=== PATIENT | male | born 1985 | race Hispanic/Latino ===

== ENCOUNTER 2023-01-30 12:53 | Inpatient (IN) | payer SELFPAY ==
[2023-01-30] MEDS ORDERED: Iopamidol-370 76% 500 ML MDV (1 ML CHARGE) ONE (13:01)
[2023-01-30] MEDS ORDERED: Midazolam HCl 2 mg/2 ml Vial ONE ×2 (13:04→13:16)
[2023-01-30 13:18] LABS: Hemoglobin 17.9 g/dL (12.0-18.0); Mean Corpuscular HGB CONC 34.7 g/dL (32.0-36.0); Mean Corpuscular Hemoglobin 31.4 pg (27.0-31.0); Mean Corpuscular Volume 90.7 fl (78.0-98.0); Mean Platelet Volume 8.2 fL (7.4-10.4); Platelet Count 309 10x3/uL (130-400); RBC Distribution Width 12.1 % (11.5-14.5); White Blood Cell (WBC) Count 22.3 10x3/uL (4.8-10.8)
[2023-01-30 13:27] LABS: Bacteria/HPF None Seen HPF (None Seen); Bilirubin Negative (Negative); Blood, Urine 1+ (Negative); Clarity Clear (Clear); Glucose, Urine (Dipstick) Normal (Negative); Ketone, Urine 10 mg/dL (Negative); Leukocyte Negative Leu/uL (Negative); Nitrite Negative (Negative); Protein, Urine (Dipstick) 10 mg/dL (Neg-Trace); Specific Gravity, Urine 1.009 (1.002-1.036); Squamous Epithelial 0-3 HPF (0-3); Urobilinogen Normal mg/dL (Less than 2); WBC/HPF 0-3 HPF (0-3); pH, Urine 6.5 (5.0-9.0)
[2023-01-30] MEDS ORDERED: Fentanyl CADD 100 ML IV SCH (13:30)
[2023-01-30 13:33] LABS: Amphetamine Not Detected (NotDetected); Barbiturates Screen Not Detected (NotDetected); Benzodiazepine Screen Not Detected (NotDetected); Cocaine Metabolite Screen Not Detected (NotDetected); Methadone Not Detected (NotDetected); Methamphetamine Not Detected (NotDetected); Opiate Screen Not Detected (NotDetected); Oxycodone Screen Not Detected (NotDetected); Phencyclidine (PCP) Not Detected (NotDetected); THC/Cannabinoid Screen Detected (NotDetected); Tricyclic Screen Not Detected (NotDetected)
[2023-01-30 13:35] LABS: Band 4 % (5-11); Lymphocytes 9 % (21-51); MDiff Complete? YES; Monocytes 4 % (0-10); Neutrophil 82 % (42-75); Platelet Morphology Comment Appears Adequate; RBC Morphology Normal; Reactive Lymphocytes 1 % (0-10)
[2023-01-30 13:52] LABS: Acetaminophen Less than 10.0 mcg/mL (10.0-30.0); Alcohol Less than 10 mg/dL (Less than 10); Salicylate Less than 8.0 mg/dL (15.0-30.0)
[2023-01-30 14:05] LABS: Base Excess (BEa) -2.2 mEq/L (-2.0 to +3.0); Calcium, Ionized (arterial) 1.07 mmol/L (1.12-1.30); Carboxyhemoglobin (COHb) 1.3 gm% (0.0-3.0); Hemoglobin (Hb) 17.2 g/dL (12.0-18.0); O2 Tension (PaO2), arterial 85.3 mmHg (> 60.0); Potassium - ABG Lab 3.31 mmol/L (3.70-5.30); pH, Arterial 7.37 (7.35-7.45)
[2023-01-30 14:06] LABS: Puncture Site Right Radial
[2023-01-30] MEDS ORDERED: Insulin Regular 300 UNITS/3 ML VIAL SC PRN (14:12)
[2023-01-30] MEDS ORDERED: TETANUS, DIPHTHERIA TOX,ADULT (TDVAX) 0.5 ML VIAL IM ONE (14:12)
[2023-01-30] MEDS ORDERED: Ondansetron PF 4 MG/2 ML Vial IVP PRN (14:12)
[2023-01-30] MEDS ORDERED: Dextrose 5% in Water 1,000 ML IV PRN (14:12)
[2023-01-30] MEDS ORDERED: Ipratropium/Albuterol 3 ML NEB NEB PRN (14:12)
[2023-01-30] MEDS ORDERED: Dextrose 50% Abboject 50 ML SYRINGE SLOW IVP PRN (14:12)
[2023-01-30] MEDS ORDERED: Calcium Chloride 13.6 MEQ in Sodium Chloride 0.9% 100 ML IVPB SCH (14:15)
[2023-01-30 14:20] LABS: ALT (SGPT) 52 U/L (8-55); AST (SGOT) 41 U/L (5-34); Albumin 4.6 g/dL (3.4-4.8); Alcohol Less than 10 mg/dL (Less than 10); Alkaline Phosphatase 112 U/L (40-110); Anion Gap 20 mmol/L (10-20); BUN (Urea Nitrogen) 10 mg/dL (8.4-25.7); Bilirubin, Total 1.4 mg/dL (0.2-1.2); Calcium 8.8 mg/dL (7.8-10.44); Carbon Dioxide 16 mmol/L (23-31); Chloride 106 mmol/L (98-107); Globulin 3.7 g/dL (2.4-3.5); Glucose 182 mg/dL (83-110); Lipase 13 U/L (8-78); Potassium 3.6 mmol/L (3.5-5.1); Protein, Total 8.3 g/dL (5.8-8.1); Sodium 138 mmol/L (136-145)
[2023-01-30] MEDS ORDERED: Sodium Chloride 3% 500 ML IVPB SCH ×2 (14:30→20:00)
[2023-01-30 14:36] LABS: INR-International Normal Ratio 0.9; Prothrombin Time 12.8 sec (12.0-14.7)
[2023-01-30 14:37] LABS: PTT 26.6 sec (22.9-36.1)
[2023-01-30 14:48] LABS: Troponin I 0.011 ng/mL (< 0.028)
[2023-01-30] MEDS ORDERED: Labetalol HCl 100 MG/20 ML VIAL SLOW IVP PRN (14:58)
[2023-01-30] MEDS ORDERED: hydrALAZINE 20 MG/ML VIAL SLOW IVP PRN (14:58)
[2023-01-30 15:27] LABS: Magnesium 1.7 mg/dL (1.6-2.6)
[2023-01-30 15:56] LABS: Actual Bicarbonate (HCO3a) 18.7 mEq/L (22-28); Base Excess (BEa) -3.4 mEq/L (-2.0 to +3.0); CO2 Tension 27.1 mmHg (35.0-45.0); Calcium, Ionized (arterial) 1.18 mmol/L (1.12-1.30); Carboxyhemoglobin (COHb) 0.8 gm% (0.0-3.0); Hemoglobin (Hb) 16.6 g/dL (14.0-18.0); O2 Tension (PaO2), arterial 128.2 mmHg (80.0-100.0); Potassium - ABG Lab 3.81 mmol/L (3.70-5.30); pH, Arterial 7.46 (7.35-7.45)
[2023-01-30 16:04] LABS: ALV-art Gradient 194.425 mmHg (0-20); Puncture Site Arterial Line
[2023-01-30] MEDS: Sodium Chloride 0.9% 1,000 ML IV SCH (16:32)
[2023-01-30] MEDS: hydrALAZINE 20 MG/ML VIAL SLOW IVP PRN (16:32)
[2023-01-30 17:00] LABS: Sodium 138 mmol/L (136-145)
[2023-01-30 17:13] LABS: Actual Bicarbonate (HCO3a) 21.2 mEq/L (22-28); Base Excess (BEa) -2.3 mEq/L (-2.0 to +3.0); CO2 Tension 33.7 mmHg (35.0-45.0); Calcium, Ionized (arterial) 1.22 mmol/L (1.12-1.30); Carboxyhemoglobin (COHb) 0.5 gm% (0.0-3.0); Hemoglobin (Hb) 17.4 g/dL (14.0-18.0); O2 Tension (PaO2), arterial 104.7 mmHg (80.0-100.0); Potassium - ABG Lab 3.75 mmol/L (3.70-5.30); pH, Arterial 7.42 (7.35-7.45)
[2023-01-30] MEDS ORDERED: Ventilator Sedation Protocol 1 EACH FS SCH (17:15)
[2023-01-30 17:21] LABS: ALV-art Gradient 138.375 mmHg (0-20); Puncture Site Arterial Line
[2023-01-30] MEDS ORDERED: Propofol BOLUS 1,000 MG/100 ML VIAL IV PRN (17:30)
[2023-01-30] MEDS: Ipratropium/Albuterol 3 ML NEB NEB SCH (18:46)
[2023-01-30 22:56] LABS: Hemoglobin A1c 5.4 % (4.0-6.0)
[2023-01-30 23:01] LABS: Sodium 140 mmol/L (136-145)
[2023-01-31] MEDS: Sodium Chloride 0.9% 1,000 ML IV SCH ×2 (00:56→09:44)
[2023-01-31] MEDS: Ipratropium/Albuterol 3 ML NEB NEB SCH ×4 (01:03→18:22)
[2023-01-31] MEDS: Fentanyl CADD 100 ML IV SCH ×2 (01:33→12:17)
[2023-01-31] MEDS: Propofol 1,000 MG/100 ML VIAL IV PRN ×2 (01:43→20:00)
[2023-01-31 02:56] LABS: Sodium 142 mmol/L (136-145)
[2023-01-31] MEDS: Famotidine/PF 20 mg/2ml Vial SLOW IVP SCH ×3 (04:15→20:10)
[2023-01-31] MEDS: levETIRAcetam 500 MG/5 ML VIAL SLOW IVP SCH ×3 (04:16→20:11)
[2023-01-31 05:09] LABS: #Lymphocytes 0.9 thou/uL (1.20-3.40); #Monocytes 1.2 thou/uL (0.11-0.59); #Neutrophils 10.2 thou/uL (1.40-6.50); %Basophils 0.2 % (0.0-1.0); %Eosinophils 0.1 % (0.0-10.0); %Lymphocytes 7.6 % (21.0-51.0); %Neutrophils 82.1 % (42.0-75.0); Hemoglobin 14.6 g/dL (14.0-18.0); Mean Corpuscular HGB CONC 34.5 g/dL (32.0-36.0); Mean Corpuscular Volume 89.8 fl (78.0-98.0); Mean Platelet Volume 8.4 fL (7.4-10.4); Platelet Count 212 10x3/uL (130-400); RBC Distribution Width 12.2 % (11.5-14.5); White Blood Cell (WBC) Count 12.4 10x3/uL (4.8-10.8)
[2023-01-31 05:32] LABS: Anion Gap 10 mmol/L (10-20); BUN (Urea Nitrogen) 11 mg/dL (8.9-20.6); Calc. Creatinine Clearance 148 mL/min (70-130); Calcium 8.7 mg/dL (7.8-10.44); Carbon Dioxide 24 mmol/L (22-29); Chloride 111 mmol/L (98-107); Estimated GFR 115; Glucose 122 mg/dL (70-105); Magnesium 1.8 mg/dL (1.6-2.6); Phosphorus 2.2 mg/dL (2.3-4.7); Potassium 3.9 mmol/L (3.5-5.1); Sodium 141 mmol/L (136-145)
[2023-01-31 06:15] LABS: Sodium 141 mmol/L (136-145)
[2023-01-31] MEDS ORDERED: Magnesium 2 GM/50 ML(in water) 2 GM in Premix Bag 1 BAG IVPB SCH (08:00)
[2023-01-31] MEDS ORDERED: Sodium Phosphate 30 MMOL in Sodium Chloride 0.9% 250 ML 250 ML IVPB SCH (09:00)
[2023-01-31 09:06] LABS: Actual Bicarbonate (HCO3a) 22.7 mEq/L (22-28); Base Excess (BEa) -0.3 mEq/L (-2.0 to +3.0); CO2 Tension 32.6 mmHg (35.0-45.0); Calcium, Ionized (arterial) 1.16 mmol/L (1.12-1.30); Carboxyhemoglobin (COHb) 0.6 gm% (0.0-3.0); Hemoglobin (Hb) 14.4 g/dL (14.0-18.0); O2 Tension (PaO2), arterial 102.5 mmHg (80.0-100.0); pH, Arterial 7.46 (7.35-7.45)
[2023-01-31 09:20] LABS: Puncture Site Arterial Line
[2023-01-31] MEDS: Senokot S 8.6-50 MG TAB PO SCH ×2 (09:32→20:10)
[2023-01-31] MEDS: Polyethylene Glycol 3350 17 GM Packet PO SCH (09:38)
[2023-01-31 10:13] LABS: Sodium 142 mmol/L (136-145)
[2023-01-31 14:24] LABS: Sodium 142 mmol/L (136-145)
[2023-02-01] MEDS ORDERED: Fentanyl CADD 100 ML ONE (00:21)
[2023-02-01] MEDS: Fentanyl CADD 100 ML IV SCH (00:26)
[2023-02-01] MEDS: Ipratropium/Albuterol 3 ML NEB NEB SCH ×4 (01:15→18:53)
[2023-02-01] MEDS ORDERED: Sodium Chloride 0.9% 500 ML IV SCH (02:00)
[2023-02-01] MEDS: Sodium Chloride 0.9% 1,000 ML IV SCH ×4 (02:33→17:52)
[2023-02-01 04:35] LABS: #Monocytes 0.9 thou/uL (0.11-0.59); #Neutrophils 8.1 thou/uL (1.40-6.50); %Basophils 0.2 % (0.0-1.0); %Eosinophils 0.1 % (0.0-10.0); %Lymphocytes 9.9 % (21.0-51.0); %Monocytes 9.2 % (0.0-10.0); %Neutrophils 80.6 % (42.0-75.0); Hemoglobin 12.8 g/dL (14.0-18.0); Mean Corpuscular HGB CONC 34.1 g/dL (32.0-36.0); Mean Corpuscular Hemoglobin 31.3 pg (27.0-31.0); Mean Corpuscular Volume 91.8 fl (78.0-98.0); Mean Platelet Volume 8.1 fL (7.4-10.4); Platelet Count 193 10x3/uL (130-400); RBC Distribution Width 12.1 % (11.5-14.5); Red Blood Cell (RBC) Count 4.07 mill/uL (4.70-6.10)
[2023-02-01 04:53] LABS: Anion Gap 10 mmol/L (10-20); BUN (Urea Nitrogen) 15 mg/dL (8.9-20.6); CK (CPK) 145 U/L (30-200); Calc. Creatinine Clearance 166 mL/min (70-130); Calcium 8.3 mg/dL (7.8-10.44); Carbon Dioxide 23 mmol/L (22-29); Chloride 113 mmol/L (98-107); Estimated GFR 119; Glucose 109 mg/dL (70-105); Magnesium 2.1 mg/dL (1.6-2.6); Phosphorus 2.5 mg/dL (2.3-4.7); Potassium 4.1 mmol/L (3.5-5.1); Sodium 142 mmol/L (136-145)
[2023-02-01] MEDS ORDERED: Morphine 4 MG/ML VIAL SLOW IVP PRN (07:49)
[2023-02-01] MEDS: Polyethylene Glycol 3350 17 GM Packet PO SCH (09:33)
[2023-02-01] MEDS: Famotidine/PF 20 mg/2ml Vial SLOW IVP SCH ×2 (09:33→19:54)
[2023-02-01] MEDS: levETIRAcetam 500 MG/5 ML VIAL SLOW IVP SCH ×2 (09:33→19:55)
[2023-02-01] MEDS: Senokot S 8.6-50 MG TAB PO SCH ×2 (09:34→19:55)
[2023-02-01] MEDS ORDERED: Acetaminophen/Codeine 30-300mg Tablet PO PRN (10:14)
[2023-02-01] MEDS ORDERED: Acetaminophen 325 MG TAB PO SCH (10:15)
[2023-02-01] MEDS ORDERED: carBAMazepine 200 MG TAB PO SCH (10:30)
[2023-02-01] MEDS: cloNIDine 0.1 MG TAB PO SCH ×2 (12:47→17:52)
[2023-02-01] MEDS: carBAMazepine 200 MG TAB PO SCH (16:45)
[2023-02-01] MEDS: Morphine 4 MG/ML VIAL SLOW IVP PRN (19:42)
[2023-02-01] MEDS: hydrALAZINE 20 MG/ML VIAL SLOW IVP PRN (20:05)
[2023-02-01] MEDS ORDERED: Dexmedetomidine In 0.9 % NaCl 100 ML IVPB SCH (20:45)
[2023-02-02] MEDS: hydrALAZINE 20 MG/ML VIAL SLOW IVP PRN ×4 (00:37→20:20)
[2023-02-02] MEDS: Ipratropium/Albuterol 3 ML NEB NEB SCH ×2 (00:56→06:21)
[2023-02-02] MEDS: Morphine 4 MG/ML VIAL SLOW IVP PRN (01:22)
[2023-02-02 04:37] LABS: #Eosinphils 0.1 thou/uL (0.0-0.7); #Lymphocytes 1.5 thou/uL (1.20-3.40); #Neutrophils 12.8 thou/uL (1.40-6.50); %Basophils 0.3 % (0.0-1.0); %Eosinophils 0.3 % (0.0-10.0); %Lymphocytes 9.5 % (21.0-51.0); %Monocytes 6.2 % (0.0-10.0); %Neutrophils 83.6 % (42.0-75.0); Hemoglobin 14.6 g/dL (14.0-18.0); Mean Corpuscular HGB CONC 34.7 g/dL (32.0-36.0); Mean Corpuscular Hemoglobin 31.1 pg (27.0-31.0); Mean Corpuscular Volume 89.5 fl (78.0-98.0); Mean Platelet Volume 8.4 fL (7.4-10.4); Platelet Count 189 10x3/uL (130-400); RBC Distribution Width 11.7 % (11.5-14.5); White Blood Cell (WBC) Count 15.3 10x3/uL (4.8-10.8)
[2023-02-02 04:52] LABS: Anion Gap 13 mmol/L (10-20); BUN (Urea Nitrogen) 11 mg/dL (8.9-20.6); Calc. Creatinine Clearance 178 mL/min (70-130); Calcium 8.6 mg/dL (7.8-10.44); Carbon Dioxide 22 mmol/L (22-29); Chloride 107 mmol/L (98-107); Estimated GFR 122; Glucose 112 mg/dL (70-105); Magnesium 1.9 mg/dL (1.6-2.6); Phosphorus 1.2 mg/dL (2.3-4.7); Potassium 3.2 mmol/L (3.5-5.1); Sodium 139 mmol/L (136-145)
[2023-02-02] MEDS ORDERED: Magnesium 2 GM/50 ML(in water) 2 GM in Premix Bag 1 BAG IVPB SCH (07:30)
[2023-02-02] MEDS ORDERED: Potassium Phosphate 30 MMOL in Sodium Chloride 0.9% 250 ML 250 ML IVPB SCH (07:30)
[2023-02-02] MEDS: Famotidine/PF 20 mg/2ml Vial SLOW IVP SCH ×2 (07:50→20:03)
[2023-02-02] MEDS: levETIRAcetam 500 MG/5 ML VIAL SLOW IVP SCH ×2 (07:50→20:03)
[2023-02-02] MEDS: carBAMazepine 200 MG TAB PO SCH ×3 (08:47→17:25)
[2023-02-02] MEDS: Senokot S 8.6-50 MG TAB PO SCH ×2 (08:47→20:03)
[2023-02-02] MEDS: Polyethylene Glycol 3350 17 GM Packet PO SCH (08:48)
[2023-02-02] MEDS ORDERED: Albuterol 200 PUFF (6.7GM INHALER) INH PRN (09:24)
[2023-02-02] MEDS: cloNIDine 0.1 MG TAB PO SCH ×3 (11:45→23:12)
[2023-02-02] MEDS ORDERED: Haloperidol Lactate 5 MG/ML VIAL ONE (17:43)
[2023-02-02] MEDS ORDERED: Haloperidol Lactate 5 MG/ML VIAL SLOW IVP SCH (18:00)
[2023-02-02] MEDS ORDERED: diphenhydrAMINE 50 MG/ML VIAL IM SCH (21:00)
[2023-02-02] MEDS ORDERED: Haloperidol Lactate 5 MG/ML VIAL SLOW IVP PRN (22:00)
[2023-02-03] MEDS: hydrALAZINE 20 MG/ML VIAL SLOW IVP PRN ×2 (01:49→06:19)
[2023-02-03 04:50] LABS: #Eosinphils 0.1 thou/uL (0.0-0.7); #Neutrophils 8.5 thou/uL (1.40-6.50); %Basophils 0.3 % (0.0-1.0); %Eosinophils 0.6 % (0.0-10.0); %Lymphocytes 9.4 % (21.0-51.0); %Monocytes 9.4 % (0.0-10.0); %Neutrophils 80.3 % (42.0-75.0); Hemoglobin 15.5 g/dL (14.0-18.0); Mean Corpuscular Hemoglobin 30.5 pg (27.0-31.0); Mean Corpuscular Volume 89.6 fl (78.0-98.0); Mean Platelet Volume 8.5 fL (7.4-10.4); Platelet Count 244 10x3/uL (130-400); RBC Distribution Width 12.1 % (11.5-14.5); Red Blood Cell (RBC) Count 5.08 mill/uL (4.70-6.10); White Blood Cell (WBC) Count 10.6 10x3/uL (4.8-10.8)
[2023-02-03 05:17] LABS: Anion Gap 14 mmol/L (10-20); BUN (Urea Nitrogen) 13 mg/dL (8.9-20.6); Calc. Creatinine Clearance 177 mL/min (70-130); Calcium 8.6 mg/dL (7.8-10.44); Carbon Dioxide 21 mmol/L (22-29); Chloride 104 mmol/L (98-107); Estimated GFR 122; Glucose 111 mg/dL (70-105); Magnesium 2.1 mg/dL (1.6-2.6); Phosphorus 1.9 mg/dL (2.3-4.7); Potassium 3.4 mmol/L (3.5-5.1); Sodium 136 mmol/L (136-145)
[2023-02-03] MEDS: cloNIDine 0.1 MG TAB PO SCH (05:45)
[2023-02-03] MEDS ORDERED: cloNIDine 0.1 MG TAB PO SCH (06:00)
[2023-02-03] MEDS: cloNIDine 0.2 MG TAB PO SCH ×4 (07:16→23:23)
[2023-02-03] MEDS: carBAMazepine 200 MG TAB PO SCH (07:16)
[2023-02-03] MEDS ORDERED: Potassium Phosphate 30 MMOL in Sodium Chloride 0.9% 250 ML 250 ML IVPB SCH ×2 (08:15→21:00)
[2023-02-03] MEDS: Senokot S 8.6-50 MG TAB PO SCH ×3 (08:44→20:19)
[2023-02-03] MEDS: Famotidine/PF 20 mg/2ml Vial SLOW IVP SCH ×2 (08:44→20:19)
[2023-02-03] MEDS: Polyethylene Glycol 3350 17 GM Packet PO SCH ×2 (08:44→11:10)
[2023-02-03] MEDS: levETIRAcetam 500 MG TAB PO SCH ×3 (08:44→20:18)
[2023-02-03 09:35] LABS: Calcium, Ionized (arterial) 1.14 mmol/L (1.12-1.30); Carboxyhemoglobin (COHb) 0.9 gm% (0.0-3.0); Hemoglobin (Hb) 16.1 g/dL (14.0-18.0); O2 Tension (PaO2), arterial 90.3 mmHg (80.0-100.0); Potassium - ABG Lab 3.66 mmol/L (3.70-5.30); pH, Arterial 7.51 (7.35-7.45)
[2023-02-03 10:03] LABS: ALV-art Gradient 28.805 mmHg (0-20); Puncture Site RBA
[2023-02-03] MEDS ORDERED: Sodium Chloride 0.9% 1,000 ML IV SCH ×2 (10:15→10:17)
[2023-02-03] MEDS ORDERED: Labetalol HCl 100 MG/20 ML VIAL SLOW IVP PRN (10:26)
[2023-02-03] MEDS ORDERED: Furosemide 20 MG/2 ML VIAL SLOW IVP SCH (17:00)
[2023-02-03 18:10] LABS: Anion Gap 16 mmol/L (10-20); BUN (Urea Nitrogen) 15 mg/dL (8.9-20.6); Calc. Creatinine Clearance 170 mL/min (70-130); Calcium 8.5 mg/dL (7.8-10.44); Carbon Dioxide 20 mmol/L (22-29); Chloride 103 mmol/L (98-107); Estimated GFR 120; Glucose 113 mg/dL (70-105); Magnesium 2.1 mg/dL (1.6-2.6); Phosphorus 2.7 mg/dL (2.3-4.7); Potassium 3.6 mmol/L (3.5-5.1); Sodium 135 mmol/L (136-145)
[2023-02-03] MEDS: Amlodipine 10 MG TAB PO SCH (20:19)
[2023-02-04 04:59] LABS: Anion Gap 15 mmol/L (10-20); BUN (Urea Nitrogen) 15 mg/dL (8.9-20.6); Calc. Creatinine Clearance 166 mL/min (70-130); Calcium 8.9 mg/dL (7.8-10.44); Carbon Dioxide 21 mmol/L (22-29); Chloride 102 mmol/L (98-107); Estimated GFR 119; Glucose 115 mg/dL (70-105); Phosphorus 3.2 mg/dL (2.3-4.7); Potassium 3.7 mmol/L (3.5-5.1); Sodium 134 mmol/L (136-145)
[2023-02-04] MEDS: cloNIDine 0.2 MG TAB PO SCH ×5 (05:57→23:53)
[2023-02-04] MEDS: Famotidine 20 MG TAB PO SCH ×2 (08:53→20:17)
[2023-02-04] MEDS: Senokot S 8.6-50 MG TAB PO SCH ×2 (08:53→20:15)
[2023-02-04] MEDS: levETIRAcetam 500 MG TAB PO SCH ×2 (08:53→20:18)
[2023-02-04] MEDS: Polyethylene Glycol 3350 17 GM Packet PO SCH (08:54)
[2023-02-04] MEDS: Acetaminophen/Codeine 30-300mg Tablet PO PRN (13:42)
[2023-02-04 16:13] LABS: CO2 Tension 24.5 mmHg (35.0-45.0)
[2023-02-04] MEDS: Amlodipine 10 MG TAB PO SCH (20:19)
[2023-02-05] MEDS ORDERED: carBAMazepine 200 MG TAB PO SCH (00:30)
[2023-02-05 03:55] LABS: Anion Gap 14 mmol/L (10-20); BUN (Urea Nitrogen) 18 mg/dL (8.9-20.6); Calc. Creatinine Clearance 149 mL/min (70-130); Carbon Dioxide 23 mmol/L (22-29); Chloride 101 mmol/L (98-107); Estimated GFR 118; Glucose 113 mg/dL (70-105); Magnesium 2.2 mg/dL (1.6-2.6); Sodium 134 mmol/L (136-145)
[2023-02-05] MEDS: cloNIDine 0.2 MG TAB PO SCH ×3 (07:34→17:25)
[2023-02-05] MEDS: carBAMazepine 200 MG TAB PO SCH ×2 (07:41→16:27)
[2023-02-05] MEDS: Polyethylene Glycol 3350 17 GM Packet PO SCH (08:46)
[2023-02-05] MEDS: Famotidine 20 MG TAB PO SCH ×2 (08:46→20:35)
[2023-02-05] MEDS: levETIRAcetam 500 MG TAB PO SCH ×2 (08:47→20:35)
[2023-02-05] MEDS: Senokot S 8.6-50 MG TAB PO SCH ×2 (08:47→20:34)
[2023-02-05] MEDS: Acetaminophen/Codeine 30-300mg Tablet PO PRN ×2 (09:20→20:33)
[2023-02-05] MEDS: Amlodipine 10 MG TAB PO SCH (20:34)
[2023-02-06] MEDS: cloNIDine 0.2 MG TAB PO SCH ×4 (00:42→17:38)
[2023-02-06 05:40] LABS: #Basophils 0.1 thou/uL (0.0-0.2); #Eosinphils 0.1 thou/uL (0.0-0.7); #Lymphocytes 1.7 thou/uL (1.20-3.40); #Monocytes 1.2 thou/uL (0.11-0.59); #Neutrophils 7.6 thou/uL (1.40-6.50); %Basophils 0.7 % (0.0-1.0); %Eosinophils 1.3 % (0.0-10.0); %Lymphocytes 16.2 % (21.0-51.0); %Monocytes 11.4 % (0.0-10.0); %Neutrophils 70.4 % (42.0-75.0); Hemoglobin 16.4 g/dL (14.0-18.0); Mean Corpuscular HGB CONC 34.7 g/dL (32.0-36.0); Mean Corpuscular Hemoglobin 30.8 pg (27.0-31.0); Mean Corpuscular Volume 88.8 fl (78.0-98.0); Mean Platelet Volume 8.1 fL (7.4-10.4); Platelet Count 272 10x3/uL (130-400); RBC Distribution Width 11.9 % (11.5-14.5); Red Blood Cell (RBC) Count 5.32 mill/uL (4.70-6.10); White Blood Cell (WBC) Count 10.7 10x3/uL (4.8-10.8)
[2023-02-06 06:01] LABS: Anion Gap 15 mmol/L (10-20); BUN (Urea Nitrogen) 20 mg/dL (8.9-20.6); Calc. Creatinine Clearance 135 mL/min (70-130); Calcium 9.1 mg/dL (7.8-10.44); Carbon Dioxide 23 mmol/L (22-29); Chloride 99 mmol/L (98-107); Estimated GFR 116; Glucose 122 mg/dL (70-105); Magnesium 2.3 mg/dL (1.6-2.6); Potassium 3.7 mmol/L (3.5-5.1); Sodium 133 mmol/L (136-145)
[2023-02-06] MEDS: Acetaminophen/Codeine 30-300mg Tablet PO PRN ×3 (06:25→18:23)
[2023-02-06] MEDS: levETIRAcetam 500 MG TAB PO SCH ×2 (07:51→21:19)
[2023-02-06] MEDS: Sodium Chloride 1 GM TAB PO SCH ×2 (07:51→15:06)
[2023-02-06] MEDS: Famotidine 20 MG TAB PO SCH ×2 (07:52→21:19)
[2023-02-06] MEDS: Senokot S 8.6-50 MG TAB PO SCH ×2 (07:52→21:19)
[2023-02-06] MEDS: carBAMazepine 200 MG TAB PO SCH (07:53)
[2023-02-06] MEDS: Polyethylene Glycol 3350 17 GM Packet PO SCH (08:09)
[2023-02-06] MEDS ORDERED: carBAMazepine 200 MG TAB PO SCH (09:00)
[2023-02-06] MEDS ORDERED: clonazePAM 0.5 MG TAB PO SCH (19:00)
[2023-02-06] MEDS: Amlodipine 10 MG TAB PO SCH (21:19)
[2023-02-07] MEDS: Sodium Chloride 1 GM TAB PO SCH ×3 (01:26→16:21)
[2023-02-07] MEDS: cloNIDine 0.2 MG TAB PO SCH ×2 (01:26→05:03)
[2023-02-07] MEDS: Acetaminophen/Codeine 30-300mg Tablet PO PRN (05:03)
[2023-02-07 08:26] LABS: Calcium 9.2 mg/dL (7.8-10.44); Chloride 101 mmol/L (98-107); Potassium 4.2 mmol/L (3.5-5.1); Sodium 136 mmol/L (136-145)
[2023-02-07 08:27] LABS: Glucose 108 mg/dL (70-105)
[2023-02-07 08:29] LABS: Anion Gap 14 mmol/L (10-20); Carbon Dioxide 25 mmol/L (22-29)
[2023-02-07 08:30] LABS: Calc. Creatinine Clearance 147 mL/min (70-130); Estimated GFR 118
[2023-02-07 08:31] LABS: BUN (Urea Nitrogen) 20 mg/dL (8.9-20.6)
[2023-02-07] MEDS: levETIRAcetam 500 MG TAB PO SCH ×2 (08:41→21:11)
[2023-02-07] MEDS: Senokot S 8.6-50 MG TAB PO SCH ×2 (08:41→21:11)
[2023-02-07] MEDS: Famotidine 20 MG TAB PO SCH ×2 (08:41→21:11)
[2023-02-07] MEDS: Polyethylene Glycol 3350 17 GM Packet PO SCH (08:41)
[2023-02-07] MEDS ORDERED: clonazePAM 0.5 MG TAB PO SCH (09:00)
[2023-02-07] MEDS: cloNIDine 0.1 MG TAB PO SCH ×2 (12:17→18:17)
[2023-02-07] MEDS ORDERED: Haloperidol Lactate 5 MG/ML VIAL IM SCH (15:45)
[2023-02-07] MEDS ORDERED: Lorazepam 2 MG/ML VIAL SLOW IVP SCH (15:45)
[2023-02-07] MEDS: Amlodipine 10 MG TAB PO SCH (21:11)
[2023-02-08] MEDS ORDERED: Acetaminophen 500 MG TAB PO PRN (00:11)
[2023-02-08] MEDS ORDERED: Morphine 2 MG/ML VIAL SLOW IVP PRN (00:11)
[2023-02-08] MEDS: Sodium Chloride 1 GM TAB PO SCH ×4 (00:30→23:54)
[2023-02-08] MEDS: cloNIDine 0.1 MG TAB PO SCH ×5 (00:36→23:59)
[2023-02-08] MEDS: Acetaminophen 500 MG TAB PO SCH ×4 (03:23→20:54)
[2023-02-08] MEDS: levETIRAcetam 500 MG TAB PO SCH ×2 (09:26→20:55)
[2023-02-08] MEDS: Polyethylene Glycol 3350 17 GM Packet PO SCH (10:06)
[2023-02-08] MEDS: Senokot S 8.6-50 MG TAB PO SCH ×2 (10:06→20:54)
[2023-02-08] MEDS: Famotidine 20 MG TAB PO SCH ×2 (10:06→20:55)
[2023-02-08] MEDS: Amlodipine 10 MG TAB PO SCH (20:55)
[2023-02-09] MEDS: Acetaminophen 500 MG TAB PO SCH ×4 (02:10→20:29)
[2023-02-09] MEDS: cloNIDine 0.1 MG TAB PO SCH ×3 (07:04→18:10)
[2023-02-09] MEDS: levETIRAcetam 500 MG TAB PO SCH ×2 (08:40→20:30)
[2023-02-09] MEDS: Sodium Chloride 1 GM TAB PO SCH ×2 (08:43→15:56)
[2023-02-09] MEDS: Famotidine 20 MG TAB PO SCH ×2 (08:45→20:29)
[2023-02-09] MEDS: Senokot S 8.6-50 MG TAB PO SCH ×2 (08:45→20:28)
[2023-02-09] MEDS: Polyethylene Glycol 3350 17 GM Packet PO SCH (08:45)
[2023-02-09 11:43] VITALS: BMI 28.4
[2023-02-09] MEDS: Amlodipine 10 MG TAB PO SCH (20:30)
[2023-02-10] MEDS: Sodium Chloride 1 GM TAB PO SCH ×2 (00:19→06:33)
[2023-02-10] MEDS: cloNIDine 0.1 MG TAB PO SCH ×5 (00:19→23:32)
[2023-02-10] MEDS: Acetaminophen 500 MG TAB PO SCH ×4 (04:20→19:41)
[2023-02-10] MEDS: Senokot S 8.6-50 MG TAB PO SCH ×2 (09:51→19:39)
[2023-02-10] MEDS: Famotidine 20 MG TAB PO SCH ×2 (09:52→19:39)
[2023-02-10] MEDS: levETIRAcetam 500 MG TAB PO SCH ×2 (09:52→19:35)
[2023-02-10] MEDS: Polyethylene Glycol 3350 17 GM Packet PO SCH (09:53)
[2023-02-10] MEDS ORDERED: Haloperidol Lactate 5 MG/ML VIAL IM SCH (19:15)
[2023-02-10] MEDS ORDERED: diphenhydrAMINE 50 MG/ML VIAL IM SCH (19:15)
[2023-02-10] MEDS ORDERED: Lorazepam 2 MG/ML VIAL IM SCH (19:15)
[2023-02-10] MEDS: Amlodipine 10 MG TAB PO SCH (21:01)
[2023-02-11] MEDS: Acetaminophen 500 MG TAB PO SCH ×4 (00:30→20:36)
[2023-02-11] MEDS: cloNIDine 0.1 MG TAB PO SCH ×4 (05:44→23:28)
[2023-02-11] MEDS: Polyethylene Glycol 3350 17 GM Packet PO SCH (09:10)
[2023-02-11] MEDS: Famotidine 20 MG TAB PO SCH ×2 (09:10→20:30)
[2023-02-11] MEDS: levETIRAcetam 500 MG TAB PO SCH ×2 (09:10→20:30)
[2023-02-11] MEDS: Senokot S 8.6-50 MG TAB PO SCH ×2 (09:10→20:31)
[2023-02-11] MEDS: Amlodipine 10 MG TAB PO SCH (20:30)
[2023-02-11] MEDS ORDERED: QUEtiapine 25 MG TAB PO SCH (23:30)
[2023-02-12] MEDS: Acetaminophen 500 MG TAB PO SCH ×4 (03:20→21:11)
[2023-02-12] MEDS: cloNIDine 0.1 MG TAB PO SCH ×3 (05:40→18:25)
[2023-02-12] MEDS: levETIRAcetam 500 MG TAB PO SCH ×2 (09:48→21:12)
[2023-02-12] MEDS: Senokot S 8.6-50 MG TAB PO SCH ×2 (09:48→21:12)
[2023-02-12] MEDS: Polyethylene Glycol 3350 17 GM Packet PO SCH (09:48)
[2023-02-12] MEDS ORDERED: Lorazepam 2 MG/ML VIAL IM SCH (18:30)
[2023-02-12] MEDS ORDERED: Haloperidol Lactate 5 MG/ML VIAL IM SCH (19:00)
[2023-02-12] MEDS: QUEtiapine 25 MG TAB PO SCH (21:12)
[2023-02-12] MEDS: Amlodipine 10 MG TAB PO SCH (21:12)
[2023-02-13] MEDS: cloNIDine 0.1 MG TAB PO SCH ×4 (01:08→16:55)
[2023-02-13] MEDS: Acetaminophen 500 MG TAB PO SCH ×4 (03:45→19:43)
[2023-02-13] MEDS: levETIRAcetam 500 MG TAB PO SCH ×2 (10:00→19:43)
[2023-02-13] MEDS: Senokot S 8.6-50 MG TAB PO SCH ×2 (10:00→20:15)
[2023-02-13] MEDS: Polyethylene Glycol 3350 17 GM Packet PO SCH (10:14)
[2023-02-13] MEDS: QUEtiapine 25 MG TAB PO SCH (19:43)
[2023-02-13] MEDS: Amlodipine 10 MG TAB PO SCH (20:47)
[2023-02-13] MEDS ORDERED: Melatonin 3 MG TAB PO SCH (22:00)
[2023-02-14] MEDS: cloNIDine 0.1 MG TAB PO SCH ×5 (01:13→23:07)
[2023-02-14] MEDS: Acetaminophen 500 MG TAB PO SCH ×4 (02:05→20:57)
[2023-02-14] MEDS: Senokot S 8.6-50 MG TAB PO SCH ×2 (08:58→20:55)
[2023-02-14] MEDS: levETIRAcetam 500 MG TAB PO SCH ×2 (08:58→20:57)
[2023-02-14] MEDS: Polyethylene Glycol 3350 17 GM Packet PO SCH (08:59)
[2023-02-14] MEDS: Amlodipine 10 MG TAB PO SCH (20:56)
[2023-02-14] MEDS: QUEtiapine 25 MG TAB PO SCH (20:57)
[2023-02-15] MEDS: Acetaminophen 500 MG TAB PO SCH ×4 (02:32→21:53)
[2023-02-15] MEDS: cloNIDine 0.1 MG TAB PO SCH ×3 (05:14→18:51)
[2023-02-15] MEDS: levETIRAcetam 500 MG TAB PO SCH ×2 (09:32→21:54)
[2023-02-15] MEDS: Polyethylene Glycol 3350 17 GM Packet PO SCH (09:32)
[2023-02-15] MEDS: Senokot S 8.6-50 MG TAB PO SCH ×2 (09:32→21:53)
[2023-02-15] MEDS: Amlodipine 10 MG TAB PO SCH (21:54)
[2023-02-15] MEDS: QUEtiapine 25 MG TAB PO SCH (21:55)
[2023-02-16] MEDS: cloNIDine 0.1 MG TAB PO SCH ×3 (01:54→12:46)
[2023-02-16] MEDS: Acetaminophen 500 MG TAB PO SCH ×3 (02:14→15:30)
[2023-02-16] MEDS: levETIRAcetam 500 MG TAB PO SCH ×2 (09:19→21:48)
[2023-02-16] MEDS: Senokot S 8.6-50 MG TAB PO SCH ×2 (09:19→21:48)
[2023-02-16] MEDS: Polyethylene Glycol 3350 17 GM Packet PO SCH (09:21)
[2023-02-16] MEDS ORDERED: Acetaminophen 500 MG TAB PO PRN (15:30)
[2023-02-16] MEDS: QUEtiapine 25 MG TAB PO SCH (21:48)
[2023-02-16] MEDS: Amlodipine 10 MG TAB PO SCH (21:48)
[2023-02-17 06:13] VITALS: TEMP 98.2
[2023-02-17] MEDS: Polyethylene Glycol 3350 17 GM Packet PO SCH ×2 (08:19→08:20)
[2023-02-17] MEDS: levETIRAcetam 500 MG TAB PO SCH (08:19)
[2023-02-17] MEDS: Senokot S 8.6-50 MG TAB PO SCH (08:19)
[2023-02-17 12:17] VITALS: BP 134/79
== END 2023-02-17 18:30 | disposition home or self-care (01) | DRG 82 ==
LOC: EDBD 12:53 → ERS 12:53 → EDSEX 12:53 → CCU 14:49 → SURG A 02-07 09:14
PROVIDERS: ADMIT Student in an Organized Health Care Education/Training Program; ATTEND Student in an Organized Health Care Education/Training Program
PROC: 02HV33Z Insertion of Infusion Device into Superior Vena Cava, Percutaneous Approach (ICD-10-PCS; principal; 2023-01-30)
PROC: 03HY32Z Insertion of Monitoring Device into Upper Artery, Percutaneous Approach (ICD-10-PCS; 2023-01-30)
PROC: 5A1945Z Respiratory Ventilation, 24-96 Consecutive Hours (ICD-10-PCS; 2023-01-30)
PROC: 03HY32Z Insertion of Monitoring Device into Upper Artery, Percutaneous Approach (ICD-10-PCS; 2023-01-31)
DX: S06.5XAA Traumatic subdural hemorrhage with loss of consciousness status unknown, initial encounter (principal); J69.0 Pneumonitis due to inhalation of food and vomit; J96.01 Acute respiratory failure with hypoxia; E87.20 Acidosis, unspecified; S06.6XAA Traumatic subarachnoid hemorrhage with loss of consciousness status unknown, initial encounter; W13.2XXA Fall from, out of or through roof, initial encounter; R40.2312 Coma scale, best motor response, none, at arrival to emergency department; R40.2112 Coma scale, eyes open, never, at arrival to emergency department; R40.2212 Coma scale, best verbal response, none, at arrival to emergency department; I48.0 Paroxysmal atrial fibrillation; S01.01XA Laceration without foreign body of scalp, initial encounter; R00.1 Bradycardia, unspecified; R56.9 Unspecified convulsions; E83.39 Other disorders of phosphorus metabolism; Z78.1 Physical restraint status
CPT/HCPCS: 36415; 36416; 36556; 36600; 51702; 70450; 70496; 70498; 71045; 71260; 72125; 72170; 74177; 80048; 80053; 80306; 80307; 81003; 81015; 82805; 83036; 83605; 83690; 83735; 83930; 84100; 84146; 84295; 84484; 85025; 85610; 85730; 86850; 86900; 86901; 90471; 93005; 93010; 93306; 93970; 94002; 94003; 94640; 96365; 96374; 96375; 99292; G0390; J0360; J1200; J1630; J1650; J1940; J1953; J2060; J2250; J2270; J2704; J3010; J3475; J3490; J7030; J7050; J7131; J7620; Q9967; S0028

== ENCOUNTER 2023-03-11 08:37 | Outpatient (CLI) | payer OTHER | END 2023-03-11 08:38 | disposition home or self-care (01) | LOC: CT 08:37 | PROVIDERS: ATTEND Physician Assistant | DX: S06.6XAA Traumatic subarachnoid hemorrhage with loss of consciousness status unknown, initial encounter (principal); S06.1XAA Traumatic cerebral edema with loss of consciousness status unknown, initial encounter | CPT/HCPCS: 70450 ==